=== PATIENT | male | born 1980 | race Caucasian/White ===

== ENCOUNTER 2023-12-18 18:11 | Emergency (ER) | payer OTHER ==
[~2023-12-18] VITALS: Ht 193 cm; Wt 74.8 kg
[~2023-12-18 18:11] MED LIST: AMOCLA875 PO; AZIT250 PO; CEPH500 PO; CLIN300 PO; HYDACE5 PO; Keflex500 MG PO; MORP15ER PO; Norco 5-325 Ta1 EACH PO; OXYACE5T PO; PROACE100 PO; RXHYDACE PO; RXOXYACE PO; RXPROACE PO
[2023-12-18] MEDS ORDERED: RX Prepack 6 Tabs Oxycodone 5mg UD ONE (18:40)
[2023-12-18] MEDS ORDERED: Cephalexin Monohydrate 500 MG Cap PO ONE (18:40)
[2023-12-18] MEDS ORDERED: CEPH500 PO (19:04)
== END 2023-12-18 19:06 | disposition home or self-care (01) ==
LOC: ER 18:11
DX: T24.201A Burn of second degree of unspecified site of right lower limb, except ankle and foot, initial encounter (principal); F17.200 Nicotine dependence, unspecified, uncomplicated; W36.1XXA Explosion and rupture of aerosol can, initial encounter; Z59.02 Unsheltered homelessness; Z79.2 Long term (current) use of antibiotics
CPT/HCPCS: 99283; A9270

== ENCOUNTER 2024-03-30 11:05 | Emergency (ER) | payer OTHER ==
[~2024-03-30] VITALS: Ht 193 cm; Wt 74.8 kg
== END 2024-03-30 13:25 | disposition left against medical advice (07) ==
LOC: ER 11:05
DX: M54.2 Cervicalgia (principal); Z53.29 Procedure and treatment not carried out because of patient's decision for other reasons
CPT/HCPCS: 70450; 72070; 72100; 72125; 99283-25